=== PATIENT | female | born 1950 | race African-American/Black ===

== ENCOUNTER 2020-05-18 11:36 | Emergency (ER) | payer OTHER ==
[~2020-05-18] VITALS: Ht 157.5 cm; Wt 72.6 kg
[~2020-05-18 11:36] MED LIST: ARAVA10 MG; HUMIRA40 MG/0.1; HYZAAR 100-121 UDTAB; KETO10TA2 PO; NORFLEX100MG PO; NORTUSS-EX LIQ118 ML PO; PREDNISOLONE5 GM
[2020-05-18] MEDS ORDERED: FOLIC ACID0.8 M1 (11:58)
[2020-05-18] MEDS ORDERED: MICARDIS40 MG (11:58)
[2020-05-18] MEDS ORDERED: PEPCID AC20 MG PO (15:08)
== END 2020-05-18 15:11 | disposition home or self-care (01) ==
LOC: ER 11:36
DX: K29.60 Other gastritis without bleeding (principal)

== ENCOUNTER 2021-05-31 09:49 | Emergency (ER) | payer OTHER ==
[~2021-05-31] VITALS: Ht 152.4 cm; Wt 73.5 kg
[~2021-05-31 09:49] MED LIST changes: +FOLIC ACID0.8 M1; +MICARDIS40 MG; +PEPCID AC20 MG PO
[2021-05-31] MEDS ORDERED: MAXIMUM D3325 MCG PO (09:59)
[2021-05-31] MEDS ORDERED: PREDNISONE 5MG (10:01)
[2021-05-31] MEDS ORDERED: NORFLEX100MG PO (11:42)
[2021-05-31] MEDS ORDERED: KETO10TA2 PO (11:42)
== END 2021-05-31 12:40 | disposition home or self-care (01) ==
LOC: ER 09:49
DX: M54.59 Other low back pain (principal)

== ENCOUNTER 2021-07-17 20:11 | Emergency (ER) | payer OTHER ==
[~2021-07-17] VITALS: Ht 165.1 cm; Wt 74.8 kg
[~2021-07-17 20:11] MED LIST changes: +MAXIMUM D3325 MCG PO; +PREDNISONE 5MG
[2021-07-17] MEDS ORDERED: ULTRAM50 MG PO (22:39)
== END 2021-07-17 22:45 | disposition home or self-care (01) ==
LOC: ER 20:11
DX: S42.252A Displaced fracture of greater tuberosity of left humerus, initial encounter for closed fracture (principal); S40.012A Contusion of left shoulder, initial encounter; M25.512 Pain in left shoulder; W18.09XA Striking against other object with subsequent fall, initial encounter; Y93.89 Activity, other specified; Y92.89 Other specified places as the place of occurrence of the external cause; Y99.8 Other external cause status

== ENCOUNTER 2025-04-10 14:01 | Emergency (ER) | payer OTHER ==
[~2025-04-10] VITALS: Ht 157.5 cm; Wt 72.6 kg
[~2025-04-10 14:01] MED LIST changes: +DICLOFENAC POTA50 MG PO; +ULTRAM50 MG PO
[2025-04-10] MEDS ORDERED: ORPHENADRINE CITRATE 30 MG/ML AMPUL IM STA (16:38)
== END 2025-04-10 17:45 | disposition home or self-care (01) ==
LOC: ER 14:01
DX: T14.8XXA Other injury of unspecified body region, initial encounter (principal); V49.9XXA Car occupant (driver) (passenger) injured in unspecified traffic accident, initial encounter; Y93.89 Activity, other specified; Y92.413 State road as the place of occurrence of the external cause; Y99.9 Unspecified external cause status; Z88.2 Allergy status to sulfonamides

== ENCOUNTER → 2025-04-29 | Emergency (ER) | payer OTHER ==
[~2025-04-29] VITALS: Ht 157.5 cm; Wt 63.5 kg
[~2025-04-29] MED LIST changes: +DICLOFENAC SODI75 MG PO; +KETOROLAC TROMETHAMINE 30 MG VIAL IM ONE; +KETOROLAC TROMETHAMINE 30 MG VIAL ONE; +MICARDIS80 MG PO
== END | disposition home or self-care (01) ==
LOC: ER 11:36
DX: M79.642 Pain in left hand (principal); M85.842 Other specified disorders of bone density and structure, left hand; I10 Essential (primary) hypertension; Z88.2 Allergy status to sulfonamides
CPT/HCPCS: 73130; 96372; 99283; J1885